=== PATIENT | female | born 1990 | race Caucasian/White ===

== ENCOUNTER → 2016-10-06 | Outpatient (REF) | payer BC ==
[~2016-10-06] MED LIST: RISP1TAB3 PO; TRAZ50TA2 PO
== END ==
LOC: M SFHCWAGY 12:06
PROVIDERS: ATTEND Nurse Practitioner Women's Health
DX: Z12.4 Encounter for screening for malignant neoplasm of cervix (principal)

== ENCOUNTER → 2017-07-05 | Outpatient (REF) | payer BC, OTHER ==
[2017-07-06 08:30] LABS: CHLAMYDIA DNA AMPLIFICATION NEGATIVE (NEGATIVE); GC DNA AMPLIFICATION NEGATIVE (NEGATIVE)
== END ==
LOC: M LAB REF 17:05
DX: R30.0 Dysuria (principal)
CPT/HCPCS: 87086

== ENCOUNTER → 2017-07-05 | Outpatient (CLI) | payer BC | LOC: M WUC 15:04 | DX: R10.32 Left lower quadrant pain (principal) | CPT/HCPCS: 74018 ==

== ENCOUNTER → 2017-09-14 | Outpatient (REF) | payer OTHER | LOC: M SFHCLERA 20:28 | DX: R35.0 Frequency of micturition (principal) ==

== ENCOUNTER → 2017-10-12 | Outpatient (REF) | payer OTHER | LOC: M SFHCLERA 18:51 | DX: R35.0 Frequency of micturition (principal) | CPT/HCPCS: 87086 ==

== ENCOUNTER → 2018-01-09 | Outpatient (REF) | payer OTHER | LOC: M LAB REF 09:23 | DX: J02.9 Acute pharyngitis, unspecified (principal) ==

== ENCOUNTER 2018-04-24 20:56 | Emergency (ER) | payer OTHER ==
[2018-04-24 21:31] LABS: BASO % 0.2 % (0.0-1.0); EOS % 0.2 % (0.0-3.0); HEMATOCRIT 37.6 % (36.0-47.0); HEMOGLOBIN 12.8 g/dl (12.0-15.5); IMMATURE GRANULOCYTE % 0.4 % (0-3.0); LYMPH # 2.1 10^3/uL (1.5-6.5); LYMPH % 18.9 % (24.0-44.0); MEAN CORPUSCULAR HEMOGLOBIN 30.8 pg (27.0-33.0); MEAN CORPUSCULAR VOLUME 90.4 fl (80.0-96.0); MONO # 0.6 10^3/uL (0.0-0.8); MONO % 5.4 % (0.0-5.0); NEUTROPHILS # 8.2 10^3/uL (1.8-7.7); NEUTROPHILS % 74.9 % (36.0-66.0); PLATELET COUNT, AUTOMATED 267 10^3/uL (150-450); RED BLOOD COUNT 4.16 10^6/uL (4.00-5.40); RED CELL DISTRIBUTION WIDTH 12.8 % (11.5-14.5); WHITE BLOOD COUNT 10.9 10^3/uL (4.0-10.0)
[2018-04-24 21:43] LABS: AMPHETAMINES LEVEL URINE NEGATIVE (NEGATIVE); BARBITURATES URINE NEGATIVE (NEGATIVE); BENZODIAZEPINES URINE NEGATIVE (NEGATIVE); CANNABINOIDS URINE NEGATIVE (NEGATIVE); COCAINE METABOLITE URINE NEGATIVE (NEGATIVE); METHADONE URINE NEGATIVE (NEGATIVE); OPIATES URINE NEGATIVE (NEGATIVE); PHENCYCLIDINE URINE NEGATIVE (NEGATIVE)
[2018-04-24] MEDS: CHARCOAL ACTIVATED LIQUID 25 GM/120 ML BTL PO (21:45)
[2018-04-24 21:46] LABS: OSMOLALITY SERUM 284 MOSM/KG (275-295)
[2018-04-24 21:57] LABS: CONTROL LINE HCG INT CTR LINE PRESENT; HCG, SERUM QUALITATIVE NEGATIVE (NEGATIVE)
[2018-04-24 22:00] LABS: ACETAMINOPHEN LEVEL 11.1 UG/ML (10.0-30.0); ALBUMIN 3.8 GM/DL (3.2-5.2); ALBUMIN/GLOBULIN RATIO 1.31 (1.00-1.93); ALKALINE PHOSPHATASE 52 U/L (45-117); ALT/SGPT 23 U/L (12-78); ANION GAP 7 MEQ/L (8-16); AST/SGOT 17 U/L (7-37); BILIRUBIN,DIRECT 0.1 MG/DL (0.0-0.2); BILIRUBIN,TOTAL 0.3 MG/DL (0.2-1.0); BLOOD UREA NITROGEN 11 MG/DL (7-18); CALCIUM LEVEL 8.6 MG/DL (8.5-10.1); CARBON DIOXIDE LEVEL 26 MEQ/L (21-32); CHLORIDE LEVEL 107 MEQ/L (98-107); CPK CREATINE PHOSPHOKINASE 133 U/L (26-192); CREATININE FOR GFR 0.76 MG/DL (0.55-1.30); ETHYL ALCOHOL (ETHANOL) < 0.003 % (0.000-0.010); GLOMERULAR FILTRATION RATE > 60.0 (>60); GLUCOSE, FASTING 101 MG/DL (70-100); POTASSIUM SERUM 3.5 MEQ/L (3.5-5.1); SALICYLATE LEVEL < 1.7 MG/DL (5.0-30.0); SODIUM LEVEL 140 MEQ/L (136-145); TOTAL PROTEIN 6.7 GM/DL (6.4-8.2)
[2018-04-24] MEDS: ONDANSETRON 4MG/2ML VIAL (J2405) IV (22:25)
[2018-04-25 01:06] LABS: ACETAMINOPHEN LEVEL 54.7 UG/ML (10.0-30.0)
[2018-04-25 02:17] LABS: ACETAMINOPHEN LEVEL 44.1 UG/ML (10.0-30.0)
== END 2018-04-25 04:47 ==
LOC: M ED 20:56
DX: T39.1X2A Poisoning by 4-Aminophenol derivatives, intentional self-harm, initial encounter (principal); X58.XXXA Exposure to other specified factors, initial encounter; Y92.89 Other specified places as the place of occurrence of the external cause; F32.9 Major depressive disorder, single episode, unspecified; Z79.899 Other long term (current) drug therapy
CPT/HCPCS: J2405

== ENCOUNTER → 2018-06-01 | Outpatient (REF) | payer OTHER ==
[2018-06-01 21:37] LABS: APPEARANCE, URINE CLEAR (CLEAR); BACTERIA, URINE AUTO NEGATIVE (NEGATIVE); BILIRUBIN, URINE AUTO NEGATIVE (NEGATIVE); BLOOD, URINE BLOOD NEGATIVE (NEGATIVE); COLOR, URINE YELLOW (YELLOW); GLUCOSE, URINE (UA) AUTO NEGATIVE (NEGATIVE); KETONE, URINE AUTO NEGATIVE (NEGATIVE); LEUKOCYTE ESTERASE, URINE AUTO NEGATIVE (NEGATIVE); MUCUS, URINE SMALL (NEGATIVE); NITRITE, URINE AUTO NEGATIVE (NEGATIVE); PROTEIN, URINE AUTO NEGATIVE (NEGATIVE); RBC, URINE AUTO 0 /HPF (0-3); SQUAMOUS EPITHELIAL CELL UR AU 0 /HPF (0-6); UROBILINOGEN, URINE AUTO 0.2 mg/dL (0.0-2.0); WBC, URINE AUTO 0 /HPF (0-3)
== END ==
LOC: M LAB REF 10:39
PROVIDERS: ATTEND Physician Assistant
DX: N39.0 Urinary tract infection, site not specified (principal)

== ENCOUNTER → 2018-08-14 | Outpatient (CLI) | payer OTHER ==
--- NOTE | 2018-08-14 15:10 | REP ---
Chest x-ray: Two views. History: Persistent cough . Comparison study: April 24, 2018 . Findings: The lungs are well inflated and free of infiltrate. The pleural angles are sharp. The heart size is normal. Pulmonary vasculature is not increased. No significant bony abnormality is seen. Impression: Negative chest x-ray. Electronically Signed by López Diego MD 08/14/2018 03:02 P
== END ==
LOC: M LRY 14:05
PROVIDERS: ATTEND Nurse Practitioner Family
DX: R05 Cough (principal)

== ENCOUNTER → 2018-08-15 | Outpatient (REF) | payer OTHER ==
[2018-08-15 20:10] LABS: INFLUENZA A AMPLIFICATION POSITIVE (NEGATIVE); INFLUENZA B AMPLIFICATION NEGATIVE (NEGATIVE)
== END ==
LOC: M LAB REF 15:54
PROVIDERS: ATTEND Nurse Practitioner Adult Health
DX: R50.9 Fever, unspecified (principal)

== ENCOUNTER 2018-11-15 21:13 | Emergency (ER) | payer OTHER ==
[~2018-11-15] VITALS: Ht 162.6 cm; Wt 56.8 kg
[2018-11-15] MEDS ORDERED: BUSP5TA PO ×2 (21:23→23:25)
[2018-11-15] MEDS ORDERED: [UNRECOGNIZED DRUG - CODE] PO (22:07)
[2018-11-15] MEDS ORDERED: HYDR-3363 PO (22:07)
[2018-11-15] MEDS ORDERED: SPIR-10 PO (22:09)
[2018-11-15 22:40] LABS: HEMATOCRIT 42.5 % (36.0-47.0); HEMOGLOBIN 14.5 g/dl (12.0-15.5); MEAN CORPUSCULAR HEMOGLOBIN 31.3 pg (27.0-33.0); MEAN CORPUSCULAR HGB CONC 34.1 g/dl (32.0-36.5); MEAN CORPUSCULAR VOLUME 91.8 fl (80.0-96.0); PLATELET COUNT, AUTOMATED 260 10^3/uL (150-450); RED BLOOD COUNT 4.63 10^6/uL (4.00-5.40); WHITE BLOOD COUNT 9.5 10^3/uL (4.0-10.0)
[2018-11-15 22:56] LABS: HCG, SERUM QUALITATIVE NEGATIVE (NEGATIVE)
[2018-11-15 22:59] LABS: AMPHETAMINES LEVEL URINE NEGATIVE (NEGATIVE); BARBITURATES URINE NEGATIVE (NEGATIVE); BENZODIAZEPINES URINE NEGATIVE (NEGATIVE); CANNABINOIDS URINE NEGATIVE (NEGATIVE); COCAINE METABOLITE URINE NEGATIVE (NEGATIVE); METHADONE URINE NEGATIVE (NEGATIVE); OPIATES URINE NEGATIVE (NEGATIVE); PHENCYCLIDINE URINE NEGATIVE (NEGATIVE)
[2018-11-15 23:19] LABS: ACETAMINOPHEN LEVEL < 2.0 UG/ML (10.0-30.0); ALBUMIN 4.6 GM/DL (3.2-5.2); ALT/SGPT 20 U/L (12-78); BILIRUBIN,DIRECT 0.2 MG/DL (0.0-0.2); BILIRUBIN,TOTAL 0.6 MG/DL (0.2-1.0); BLOOD UREA NITROGEN 12 MG/DL (7-18); CARBON DIOXIDE LEVEL 27 MEQ/L (21-32); CHLORIDE LEVEL 102 MEQ/L (98-107); CREATININE FOR GFR 0.84 MG/DL (0.55-1.30); ETHYL ALCOHOL (ETHANOL) < 0.003 % (0.000-0.010); GLOMERULAR FILTRATION RATE > 60.0 (>60); GLUCOSE, FASTING 97 MG/DL (70-100); POTASSIUM SERUM 3.4 MEQ/L (3.5-5.1); SALICYLATE LEVEL 2.5 MG/DL (5.0-30.0); SODIUM LEVEL 139 MEQ/L (136-145); TOTAL PROTEIN 7.8 GM/DL (6.4-8.2)
[2018-11-15] MEDS ORDERED: POTASSIUM CHLORIDE 10 MEQ SR TABLET PO ONE (23:45)
[2018-11-15 23:58] VITALS: BP 129/73
== END 2018-11-16 00:09 | disposition home or self-care (01) ==
LOC: M ED 21:13
DX: F32.9 Major depressive disorder, single episode, unspecified (principal); A63.0 Anogenital (venereal) warts; K80.20 Calculus of gallbladder without cholecystitis without obstruction; N76.0 Acute vaginitis; F23 Brief psychotic disorder; F12.10 Cannabis abuse, uncomplicated; Z79.899 Other long term (current) drug therapy
CPT/HCPCS: 80048; 80076; 80307; 84443; 84703; 85027; 99284; G0480

== ENCOUNTER 2019-03-01 23:14 | Inpatient (IN) | payer OTHER ==
[~2019-03-01] VITALS: Ht 162.6 cm; Wt 55.7 kg
[~2019-03-01 23:14] MED LIST changes: +BUSP5TA PO; +HYDR-3363 PO; +SPIR-10 PO; +[UNRECOGNIZED DRUG - CODE] PO
[2019-03-02 00:17] LABS: HEMATOCRIT 39.9 % (36.0-47.0); HEMOGLOBIN 13.9 g/dl (12.0-15.5); MEAN CORPUSCULAR HEMOGLOBIN 31.6 pg (27.0-33.0); MEAN CORPUSCULAR HGB CONC 34.8 g/dl (32.0-36.5); MEAN CORPUSCULAR VOLUME 90.7 fl (80.0-96.0); PLATELET COUNT, AUTOMATED 232 10^3/uL (150-450); WHITE BLOOD COUNT 10.1 10^3/uL (4.0-10.0)
[2019-03-02 00:37] LABS: AMPHETAMINES LEVEL URINE NEGATIVE (NEGATIVE); BARBITURATES URINE NEGATIVE (NEGATIVE); BENZODIAZEPINES URINE NEGATIVE (NEGATIVE); CANNABINOIDS URINE NEGATIVE (NEGATIVE); COCAINE METABOLITE URINE NEGATIVE (NEGATIVE); METHADONE URINE NEGATIVE (NEGATIVE); OPIATES URINE NEGATIVE (NEGATIVE); PHENCYCLIDINE URINE NEGATIVE (NEGATIVE)
[2019-03-02 00:51] LABS: ACETAMINOPHEN LEVEL < 2.0 UG/ML (10.0-30.0); ALBUMIN 4.1 GM/DL (3.2-5.2); ALT/SGPT 18 U/L (12-78); BILIRUBIN,DIRECT 0.1 MG/DL (0.0-0.2); BILIRUBIN,TOTAL 0.3 MG/DL (0.2-1.0); BLOOD UREA NITROGEN 12 MG/DL (7-18); CALCIUM LEVEL 9.4 MG/DL (8.5-10.1); CARBON DIOXIDE LEVEL 25 MEQ/L (21-32); CHLORIDE LEVEL 106 MEQ/L (98-107); CREATININE FOR GFR 0.81 MG/DL (0.55-1.30); ETHYL ALCOHOL (ETHANOL) < 0.003 % (0.000-0.010); GLOMERULAR FILTRATION RATE > 60.0 (>60); GLUCOSE, FASTING 97 MG/DL (70-100); POTASSIUM SERUM 3.8 MEQ/L (3.5-5.1); SALICYLATE LEVEL < 1.7 MG/DL (5.0-30.0); SODIUM LEVEL 138 MEQ/L (136-145); TOTAL PROTEIN 7.1 GM/DL (6.4-8.2)
[2019-03-02] MEDS ORDERED: SPIR50TA4 PO (01:13)
[2019-03-02] MEDS ORDERED: BUPR150T3 PO (01:14)
[2019-03-02] MEDS ORDERED: MAALOX 30 ML SUSP *UDC PO PRN (01:45)
[2019-03-02] MEDS ORDERED: MOM 30ML SUSPENSION UDC PO PRN (01:45)
[2019-03-02] MEDS ORDERED: traZODone 50 MG TAB PO PRN (01:45)
[2019-03-02] MEDS ORDERED: OLANZapine ORAL DISINTEGRATING TAB 5MG PO PRN (01:45)
[2019-03-02] MEDS ORDERED: NICOTINE 21MG/24HR 1 EA TRANSDERMAL TD PRN (01:45)
[2019-03-02] MEDS ORDERED: ACETAMINOPHEN TAB 650MG DOSE (2X325MG) PO PRN (01:45)
[2019-03-02] MEDS ORDERED: C-251TAB PO (02:03)
[2019-03-02] MEDS ORDERED: HAIR1CHW PO (02:03)
[2019-03-02 02:17] VITALS: BP 133/78
[2019-03-02 06:34] VITALS: BP 100/51
[2019-03-02] MEDS: buPROPion **XL** TABLET 150MG (WELLBUTRIN XL) PO SCH (08:44)
--- NOTE | 2019-03-02 12:02 | HPEPDOC ---
[facility] Medical History & Physical Date of Admission Mar 02, 2019 Date of Service: Mar 02, 2019 History and Physical CONSULT FOR: Psychiatry medical history and physical HISTORY OF PRESENT ILLNESS: This is a 28-year-old female who is a history of previous hospitalizations for depression and suicidal ideation who had reported an interest in overdosing in taking her home life she was brought in the emergency room by [place] [employer] she is seen and examined with a ladies' locker room attendant at the inpatient mental health unit at this time. Physically she tells me she is doing well she is on medication for her acne as well as perioral dermatitis recently but otherwise patient denies weight loss, hair loss, headache, visual changes, chest pain, shortness of breath, cough, nausea, vomiting, diarrhea, abdominal pain, muscle aches, worsening arthritis, change in mood PAST MEDICAL HISTORY: 1. Genital warts. 2. Gallstones. 3. Gonorrhea in 2014 4. Herpangina 5. Perioral dermatitis 6. Acne. HOME MEDICATIONS: Please see below. ALLERGIES: Please see below PAST SURGICAL HISTORY: 1. Right knee surgery. SOCIAL HISTORY: Lives with: Mother, Employment: Childcare center on [place], Tobacco use: 3 cigarettes per day she is decreased her intake significantly. ETOH: Rarely wondering last month, Illicit drug use: Denies, CODE STATUS: Full code FAMILY HISTORY:Reviewed and noncontributory REVIEW OF SYSTEMS: 10 systems reviewed and negative other than HPI PHYSICAL EXAMINATION: VITAL SIGNS: Please see below GENERAL: Pleasant anxious slim female sitting up in bed awake alert oriented speaking in complete sentences no acute distress HEENT: Moist mucous membranes no elevation in CVP CARDIOVASCULAR: S1 S2 regular no additional heart sounds appreciated. RESPIRATORY: Clear to auscultation bilaterally. ABDOMINAL: Bowel sounds present abdomen soft and nontender EXTREMITIES: No clubbing cyanosis or edema NEUROLOGICAL: Spontaneously moves all 4 extremities cranial 2 through 12 grossly intact no gross focal deficits appreciated PSYCHOLOGICAL: Somewhat pressured speech appears though she's been crying LABORATORY DATA: See below. MICROBIOLOGY: Please see below. IMAGING: None ASSESSMENT & PLAN: This is a 28-year-old female with suicidal ideation. PROBLEMS: 1.suicidal ideation: Measured as per inpatient mental health unit psychiatric team. 2. Acne: She follows with dermatology on the outpatient setting will restart her home spironolactone with holding parameter for low blood pressure. She recently completed a course of antibiotics for her perioral dermatitis continue outpatient follow-up 3. Genital warts: Continue outpatient follow-up 4. Abnormal TSH: Consider rechecking through primary care provider after her acute hospitalization is resolved DVT PROPHYLAXIS: Ambulating Thank you for this interesting consult, we will continue to follow along with you. Please Vocera secure text or call with any specific questions. Vital Signs Vital Signs Date Time Temp Pulse Resp B/P (MAP) Pulse Ox O2 Delivery O2 Flow Rate FiO2 03/02/19 06:34 97.1 77 14 100/51 (67) 03/02/19 02:43 99 Room Air Laboratory Data Labs 24H Laboratory Tests 2 03/02/19 00:02: Nucleated Red Blood Cells % (auto) 0.0, Anion Gap 7L, Glomerular Filtration Rate > 60.0, Calcium Level 9.4, Aspartate Amino Transf (AST/SGOT) 15, Alanine Aminotransferase (ALT/SGPT) 18, Alkaline Phosphatase 54, Total Bilirubin 0.3, Direct Bilirubin 0.1, Total Protein 7.1, Albumin 4.1, Albumin/Globulin Ratio 1.37, Thyroid Stimulating Hormone (TSH) 5.970H, Salicylates Level < 1.7L, Urine Amphetamines Screen NEGATIVE, Urine Benzodiazepines Screen NEGATIVE, Urine Opiates Screen NEGATIVE, Urine Methadone Screen NEGATIVE, Acetaminophen Level < 2.0L, Urine Barbiturates Screen NEGATIVE, Urine Phencyclidine Screen NEGATIVE, Urine Cocaine Metabolite Screen NEGATIVE, Urine Cannabinoids Screen NEGATIVE, Ethyl Alcohol Level < 0.003 CBC/BMP Laboratory Tests 03/02/19 00:02 Red Blood Count 4.40, Mean Corpuscular Volume 90.7, Mean Corpuscular Hemoglobin 31.6, Mean Corpuscular Hemoglobin Concent 34.8, Red Cell Distribution Width 12.9 Home Medications Scheduled Ascorbic Acid (Vitamin C) 250 Mg Tablet, 250 MG PO DAILY Ascorbic Acid/Vitamin E/Biotin (Hair Skin Nails-Biotin Gummies) 1 Each Tab.chew, 1 CHW PO DAILY Bupropion Hcl (Bupropion Xl) 150 Mg Tab.er.24h, 150 MG PO QHS Spironolactone (Spironolactone) 50 Mg Tablet, 50 MG PO QHS Scheduled PRN Hydroxyzine HCl (Hydroxyzine HCl) 25 Mg Tablet, 25 MG PO BID PRN for ANXIETY Allergies Coded Allergies: No Known Drug Allergies (Verified Allergy, Unknown, 11/15/18) A-FIB/CHADSVASC A-FIB History Current/History of A-Fib/PAF?: No AVIVA WILLIMA MD Mar 02, 2019 12:02
[2019-03-02 16:21] VITALS: BP 126/62
[2019-03-02] MEDS: SPIRONOLACTONE 50 MG TAB PO SCH (20:12)
[2019-03-02] MEDS ORDERED: LORazepam 1 MG TAB PO PRN (21:15)
[2019-03-03 06:46] VITALS: BP 98/52
[2019-03-03] MEDS: CEPACOL LOZENGE PO PRN ×3 (08:45→20:55)
[2019-03-03] MEDS: buPROPion 75 MG TAB PO SCH (09:08)
[2019-03-03] MEDS: buPROPion **XL** TABLET 150MG (WELLBUTRIN XL) PO SCH (09:08)
--- NOTE | 2019-03-03 10:03 | MHHPE ---
DATE OF ADMISSION: 03/02/2019 VITAL SIGNS: Blood pressure 126/62, pulse 77, temperature 98.8. CHIEF COMPLAINT: She is anxious. SUBJECTIVE: She is 28 years old, she is single, has no children, lives with her mother and brother. She was brought into the emergency room after her mother had called the police, she was concerned that the patient may kill herself. She has had two prior hospitalizations, the last one was last year, in April, when she had taken an overdose, was transferred to [facility], stayed there for about a week or so, was discharged, and since then has been seeing the outpatient clinic at [facility]. She says she saw Dr. Clifton Gilmore, and Dianna Galvan for therapy, and most recently, after Dr. Gilmore left the clinic (he works at the inpatient unit here and she is assigned to him). She started seeing Dr. Turk. She sees Dianna Galvan as well, says last saw him about a month or so ago. She has been anxious, says has essentially not been doing well since the breakup of her relationship about 3 years ago, but that more lately anxiety has been a major feature, increasingly so, she is increasingly preoccupied with she term as her "skin condition," and on further inquiry, says has many blemishes and pimples on her face, says that has been the case for a few years, has been seen by dermatology, she acknowledges dermatology did not agree that it was as blemished as she thought, in fact mother suggests that face has been okay, that she has had a hard time believing that, was preoccupied with that, and feels it interferes with other aspects of her life, her confidence, says gets upset, further anxious, when she sees other couples, who appear to be leading happy lives. Says friends of hers have gotten , and she feels disappointed and sad that she is not. She says though she feels anxious about these situation, they tend to wax and wane. There are times when she is more anxious, more frustrated, depressed, says that she talks to her mother, and then suggests her mother has been her "punching bag" emotionally. Says they generally get along. Says she told her mother she would overdose on pills, but says she had no intentions of doing so. Apparently she left house, mother was worried, called the police, and was brought here. Says has felt a bit better after Wellbutrin was started recently, unclear exactly when, at 150 mg daily, by her outpatient psychiatrist. Says has felt a little less anxious, and is hoping that it helps cut down on her smoking as well. Says feels more relaxed when she smokes, however. Sleep is at times erratic, she has noticed a diminishing in her enjoyment of previous activities, appetite is fair, concentration is a challenge at times. There is no psychomotor retardation. She does not think there is any substantial area where she is not preoccupied with her face, perceived blemishes. Denies any auditory or visual hallucinations. Says that there was a staff meeting the other day, felt the others were doing well, the adults, and contrasted that with her own situation. PAST PSYCHIATRIC HISTORY: As indicated above, has had two hospitalizations at least, last one was last year, in April, was transferred to [facility]. She was hospitalized here in 2012, did not want to talk about that, at that time was thought to have evidence of psychosis, was paranoid, with possible auditory hallucinations, delusions of persecution. Says has not felt like that since then. FAMILY PSYCHIATRIC HISTORY: Says has an aunt who has difficulties with anxiety and depression. SUBSTANCE ABUSE HISTORY: Denies any, though chart from 2013, at least the summary, suggests that she has had difficulties in the past. Toxicology was negative. MEDICAL HISTORY/PAST SURGICAL HISTORY: 1. History of genital warts. 2. Gallstones. 3. Gonorrhea in 2014. 4. Herpangina. 5. Perioral dermatitis 6. Acne. MEDICATIONS: Please seen the list, this includes: - bupropion 150 mg daily - spironolactone 50 mg at night - hydroxyzine 25 mg twice a day as needed for anxiety, says has used it only occasionally SOCIAL HISTORY: Please refer to previous summaries, she stays with her mother, brother. Has extended family in the area, is in touch with some of them, says also has close friends. MENTAL STATUS EXAMINATION: She is seen in the presence of staff. She is neat, cooperative. No agitation. No psychomotor retardation. There are no lesions seen on the face. No abnormal movements noted. She is coherent, is anxious, appears so as well. Affect is congruent, no thought disorder, denies any suicidal thoughts or intents at present. No homicidal ideas or intents. No evidence of any psychosis. Does not appear to be internally preoccupied. No delusions elicited. She is able to maintain and shift attention adequately. Cognition is grossly intact. There is no fluctuation of consciousness. Judgment is questionable, as is insight. INVESTIGATIONS: These show toxicology negative. Metabolic profile within normal limits. Complete blood count essentially within normal limits. ASSESSMENT: Other specified anxiety disorder. Other specified depressive disorder. Consider the possibility of Body dysmorphic disorder, given her preoccupation with her skin blemishes, which are perceived, and anxieties related to that are quite significant, impact her functioning. It is quite likely she is minimizing her difficulties at present. PLAN: She is admitted to the inpatient psychiatry unit, placed on relevant precautions. We will look at obtaining collateral information to help complete the clinical picture. I would suggest empirically increasing the Wellbutrin to 300 mg daily to help address her mood, and I would also suggest considering additions of psychotropics, possibly a low dose atypical antipsychotic, to help with ruminations related to the concerns about her skin. She will receive a medicine consult. She will be encouraged to get involved in individual, group and milieu therapy. She will be discharged with followup once she is stable. I would anticipate a 3-5 day stay. The assessment took 60 minutes.
[2019-03-03 16:06] VITALS: BP 105/68
--- NOTE | 2019-03-03 17:33 | MHIPN ---
DATE: 03/03/2019 CHIEF COMPLAINT: Feels anxious. SUBJECTIVE: Is seen for followup in the presence of staff. Says she feels anxious but a bit less so than yesterday. Says eventually slept and has felt rested. Says was visited by family, including mother and that went well. Says not has been as preoccupied with her skin. Says tend to do so when she looks at herself mostly. MENTAL STATUS EXAMINATION: Neat, cooperative. Somewhat less guarded. She appears coherent. Affect is reactive, appears less anxious. Denies suicidal thoughts or intents. No homicidal ideas or intents. Currently, there is no evidence of any psychosis. Cognition is grossly intact. Judgment and insight are fair, but appear somewhat compromised. ASSESSMENT: 1. Other specified anxiety disorder. 2. Other specified depressive disorder. PLAN: Continue current care. The Wellbutrin has been decreased to 225 mg daily rather than 300 mg to see if the lower dose is effective, this can be further assessed when she sees the psychiatrist tomorrow. She is also on Ativan as needed. I would suggest obtaining collateral information and she will be seeing the assigned psychiatrist and the treatment team tomorrow, further recommendations will be made. VITAL SIGNS: Blood pressure 98/52, pulse 71, temperature 97.5.
[2019-03-03] MEDS: SPIRONOLACTONE 50 MG TAB PO SCH (20:32)
[2019-03-04 06:29] VITALS: BP 104/62
[2019-03-04] MEDS: buPROPion 75 MG TAB PO SCH (08:02)
[2019-03-04] MEDS: buPROPion **XL** TABLET 150MG (WELLBUTRIN XL) PO SCH (08:02)
[2019-03-04] MEDS: CEPACOL LOZENGE PO PRN (08:02)
[2019-03-04] MEDS ORDERED: NICO21PAT TD (09:56)
[2019-03-04] MEDS ORDERED: BUPR75TA5 PO (09:56)
--- NOTE | 2019-03-04 09:59 | MHDSPDOC ---
[facility] Discharge Summary Discharge Summary DATE OF ADMISSION: Mar 02, 2019 at 01:41 DATE OF DISCHARGE: 03/04/19 Date of Service: 03/04/2019 Diagnoses Unspecified depressive disoder. Rule out adjustment versus MDD. Unspecified personality disorder. Likely Cluster B/borderline. History of Present Illness The patient a 28-year-old woman who has recently been treated by myself and is currently seeing Dr. Turk at [facility] for depression presents after reportedly telling her mother that she wished to and was brought in on a pick-up order. She was brought in and treated with her Wellbutrin that she has been on again and off again for roughly a year. She has a history of severe depression with psychosis as well a severe suicide attempt in April 2018. However, the patient did well on the unit, denying any suicidal or homicidal ideation and was titrated to 225 mg of her Wellbutrin in combination of 150 mg extended release and 75 mg of immediate release in the morning. She reportedly has significant image problems likely secondary to her borderline personality disorder. Consultants Involved Hospitalist/PCP screening Treatment and Progress On The Unit The patient was admitted to the unit and subsequently titrated on her Wellbutrin. She was initially changed to 300 mg of extended release. Reported that she felt it over-stimulating and was subsequently lowered to 150 mg of extended release in addition to 75 mg of immediate release in the morning with positive effects. She had denied any suicidal or homicidal ideation the entirety of her admission. On Monday, she requested to leave and at that time in my clinical judgment did not meet involuntary criteria for continued stay and declined voluntary admission and thus was discharged in good jordyn to the care of [facility]. She had no major behavioral problems on the unit, no evidence of major mental health impairing her when met on discharge. Discharge Assessment [id number]old woman with likely depression/borderline personality disorder presents after reported concerning statements. Brought in on a pick-up order and admitted for observation. Did well with very mild medication changes. No signs and symptoms of major mental illness impairing. Wishes to go and no longer meets involuntary criteria and thus discharged in good jordyn. Mental Status Examination General: Well dressed with good hygiene Speech: Spontaneous and fluid Thought processes: Linear and logical MSK: Smooth and coordinated gait, no signs of tremors or involuntary orofacial movements Thought content: Future orientated Abstract reasoning, and computation: Intact Description of associations: Intact Description of abnormal or psychotic thoughts: Denies any suicidal or homicidal ideation. Denies any auditory or visual hallucinations. Does not appear to be responding to internal stimuli. Does not appear to be endorsing any bizarre or paranoid ideation. Judgment: fair Insight: fair Orientation: Alert and orientated 3 Cognition: Grossly normal Recent and remote memory: Intact Attention span and concentration: Intact Fund of knowledge: Adequate Mood: "okay" Affect: Euthymic with a full range Follow Up The social work team worked during the predischarge meeting in order to evaluate for further issues of lethality address them fully before discharge. They worked on safety planning with the patient's family members in order to ensure that the patient will have a safe and effective discharge. Time Spent The amount of time spent in the coordination of care for this patient was approximately 20 minutes. Vital Signs/I&Os Vital Signs Date Time Temp Pulse Resp B/P (MAP) Pulse Ox O2 Delivery O2 Flow Rate FiO2 03/04/19 06:29 98.3 79 14 104/62 (76) 03/02/19 02:43 99 Room Air Medications Scheduled Ascorbic Acid (Vitamin C) 250 Mg Tablet, 250 MG PO DAILY, (Reported) Ascorbic Acid/Vitamin E/Biotin (Hair Skin Nails-Biotin Gummies) 1 Each Tab.chew, 1 CHW PO DAILY, (Reported) Bupropion HCl (Bupropion HCl) 75 Mg Tablet, 75 MG PO DAILY for mood for 7 Days, #7 Bupropion Hcl (Bupropion Xl) 150 Mg Tab.er.24h, 150 MG PO QHS, (Reported) Spironolactone (Spironolactone) 50 Mg Tablet, 50 MG PO QHS, (Reported) Scheduled PRN Hydroxyzine HCl (Hydroxyzine HCl) 25 Mg Tablet, 25 MG PO BID PRN for ANXIETY, (Reported) Nicotine (Nicotine Patch) 21 Mg Patch.td24, 1 PATCH TD DAILY PRN for nicotine withdrawal for 30 Days, #30 Allergies Coded Allergies: No Known Drug Allergies (Verified Allergy, Unknown, 11/15/18) DORITA HYLTON DO Mar 04, 2019 09:59
== END 2019-03-04 14:55 | disposition home or self-care (01) | DRG 881 ==
LOC: M ED 03-02 00:05 → M ED INP 03-02 01:41 → M PSY 03-02 02:26
PROVIDERS: ADMIT Psychiatry & Neurology Psychiatry; ATTEND Psychiatry & Neurology Addiction Medicine
DX: F32.9 Major depressive disorder, single episode, unspecified (principal); R45.851 Suicidal ideations; F43.20 Adjustment disorder, unspecified; F60.3 Borderline personality disorder; Z79.899 Other long term (current) drug therapy; Z91.14 Patient's other noncompliance with medication regimen; A63.0 Anogenital (venereal) warts; K80.20 Calculus of gallbladder without cholecystitis without obstruction; B08.5 Enteroviral vesicular pharyngitis; L71.0 Perioral dermatitis; L70.9 Acne, unspecified; F17.210 Nicotine dependence, cigarettes, uncomplicated; R94.6 Abnormal results of thyroid function studies

== ENCOUNTER → 2020-11-22 | Outpatient (REF) | payer OTHER, BC ==
[~2020-11-22] MED LIST changes: +BUPR150T12 PO; +BUPR75TA5 PO; +C-251TAB PO; +HAIR1CHW PO; +NICO21PAT TD; +SPIR50TA4 PO
== END ==
LOC: M WUC 19:37
PROVIDERS: ATTEND Nurse Practitioner Family
DX: R55 Syncope and collapse (principal); R42 Dizziness and giddiness

== ENCOUNTER → 2021-02-18 | Outpatient (REF) | payer BC | LOC: M WUC 09:39 | PROVIDERS: ATTEND Physician Assistant | DX: J02.9 Acute pharyngitis, unspecified (principal) ==

== ENCOUNTER → 2022-11-15 | Outpatient (REF) | payer BC | LOC: M LAB REF 17:50 | PROVIDERS: ATTEND Nurse Practitioner Family | DX: Z32.01 Encounter for pregnancy test, result positive (principal) ==

== ENCOUNTER → 2022-12-08 | Outpatient (CLI) | payer BC | LOC: M RAD 13:58 | PROVIDERS: ATTEND Registered Nurse | DX: O09.611 Supervision of young primigravida, first trimester (principal); Z36.89 Encounter for other specified antenatal screening; Z3A.01 Less than 8 weeks gestation of pregnancy ==

== ENCOUNTER → 2022-12-27 | Outpatient (CLI) | payer MEDICAID ==
[2022-12-27 15:51] LABS: HEMATOCRIT 38.8 % (36.0-47.0); HEMOGLOBIN 13.2 g/dl (12.0-15.5); MEAN CORPUSCULAR HEMOGLOBIN 31.5 pg (27.0-33.0); MEAN CORPUSCULAR VOLUME 92.6 fl (80.0-96.0); PLATELET COUNT, AUTOMATED 271 10^3/uL (150-450); RED BLOOD COUNT 4.19 10^6/uL (4.00-5.40); WHITE BLOOD COUNT 8.9 10^3/uL (4.0-10.0)
[2022-12-27 16:20] LABS: HIV 1&2 SCREEN NEGATIVE (NEGATIVE)
[2022-12-27 16:28] LABS: HEPATITIS C VIRUS ABY INDEX 0.08 INDEX (<0.8)
== END ==
LOC: M PLALAB 12:37
PROVIDERS: ATTEND Obstetrics & Gynecology
DX: Z34.91 Encounter for supervision of normal pregnancy, unspecified, first trimester (principal)

== ENCOUNTER → 2023-03-28 | Outpatient (REF) | payer BC ==
[2023-03-28 11:33] LABS: BASO % 0.1 % (0.0-1.0); EOS # 0.1 10^3/uL (0.0-0.5); EOS % 0.6 % (0.0-3.0); HEMOGLOBIN 11.8 g/dl (12.0-15.5); LYMPH # 1.5 10^3/uL (1.5-5.0); LYMPH % 15.5 % (24.0-44.0); MEAN CORPUSCULAR HEMOGLOBIN 31.6 pg (27.0-33.0); MEAN CORPUSCULAR HGB CONC 33.7 g/dl (32.0-36.5); MEAN CORPUSCULAR VOLUME 93.6 fl (80.0-96.0); MONO # 0.6 10^3/uL (0.0-0.8); MONO % 6.7 % (2.0-8.0); NEUTROPHILS # 7.1 10^3/uL (1.5-8.5); NEUTROPHILS % 76.1 % (36.0-66.0); PLATELET COUNT, AUTOMATED 296 10^3/uL (150-450); RED BLOOD COUNT 3.74 10^6/uL (4.00-5.40); WHITE BLOOD COUNT 9.3 10^3/uL (4.0-10.0)
[2023-03-28 12:00] LABS: ALBUMIN 2.9 G/DL (3.2-5.2); ALKALINE PHOSPHATASE 65 U/L (46-116); ALT/SGPT 30 U/L (7.0-40); AST/SGOT 18 U/L (<34); BILIRUBIN,TOTAL 0.3 MG/DL (0.3-1.2); BLOOD UREA NITROGEN 9 MG/DL (9-23); CALCIUM LEVEL 8.9 MG/DL (8.5-10.1); CARBON DIOXIDE LEVEL 26 MMOL/L (20-31); CHLORIDE LEVEL 101 MMOL/L (98-107); CHOLESTEROL LEVEL 241 MG/DL (<200); CREATININE FOR GFR 0.47 MG/DL (0.55-1.30); GLOMERULAR FILTRATION RATE > 60.0 (>60); GLUCOSE, FASTING 108 MG/DL (60-100); SODIUM LEVEL 134 MMOL/L (136-145); TOTAL PROTEIN 6.2 G/DL (5.7-8.2); TRIGLYCERIDES LEVEL 211 MG/DL (<150)
[2023-03-28 13:13] LABS: CHOLESTEROL RISK RATIO 2.83 (<5); LDL CHOLESTEROL 113.8 MG/DL (<100)
[2023-03-28 14:53] LABS: THYROID STIMULATING HORMONE 1.789 uIU/ML (0.55-4.78)
== END ==
LOC: M LAB REF 10:38
PROVIDERS: ATTEND Internal Medicine
DX: Z00.00 Encounter for general adult medical examination without abnormal findings (principal); F33.42 Major depressive disorder, recurrent, in full remission; Z13.220 Encounter for screening for lipoid disorders

== ENCOUNTER → 2023-04-11 | Outpatient (CLI) | payer BC, OTHER ==
[2023-04-11 16:34] LABS: HEMATOCRIT 33.6 % (36.0-47.0); HEMOGLOBIN 11.6 g/dl (12.0-15.5); MEAN CORPUSCULAR HEMOGLOBIN 31.3 pg (27.0-33.0); MEAN CORPUSCULAR HGB CONC 34.5 g/dl (32.0-36.5); MEAN CORPUSCULAR VOLUME 90.6 fl (80.0-96.0); PLATELET COUNT, AUTOMATED 334 10^3/uL (150-450); RED BLOOD COUNT 3.71 10^6/uL (4.00-5.40); WHITE BLOOD COUNT 10.9 10^3/uL (4.0-10.0)
[2023-04-11 18:13] LABS: GC DNA AMPLIFICATION NEGATIVE (NEGATIVE)
== END ==
LOC: M PLALAB 12:23
PROVIDERS: ATTEND Advanced Practice Midwife
DX: Z34.02 Encounter for supervision of normal first pregnancy, second trimester (principal)

== ENCOUNTER → 2023-05-02 | Outpatient (CLI) | payer OTHER | LOC: M PLALAB 13:42 | PROVIDERS: ATTEND Obstetrics & Gynecology | DX: Z34.03 Encounter for supervision of normal first pregnancy, third trimester (principal) | CPT/HCPCS: 36415; 86850; 86901; J2790 ==

== ENCOUNTER → 2023-06-16 | Outpatient (CLI) | payer MEDICAID, OTHER | LOC: M WHC 07:29 | PROVIDERS: ATTEND Obstetrics & Gynecology | DX: O26.843 Uterine size-date discrepancy, third trimester (principal); Z3A.35 35 weeks gestation of pregnancy ==

== ENCOUNTER → 2023-06-22 | Outpatient (REF) | payer OTHER | LOC: M SFHCWAGY 09:00 | PROVIDERS: ATTEND Specialist | DX: Z34.03 Encounter for supervision of normal first pregnancy, third trimester (principal) ==

== ENCOUNTER → 2023-07-19 | Outpatient (CLI) | payer MEDICAID, OTHER ==
[~2023-07-19] MED LIST changes: +OMEP-173 PO; +PRENTAB9 PO; +VALA1TAB5 PO
[2023-07-19 13:37] LABS: HEMATOCRIT 33.8 % (36.0-47.0); HEMOGLOBIN 10.8 g/dl (12.0-15.5); MEAN CORPUSCULAR HEMOGLOBIN 26.9 pg (27.0-33.0); MEAN CORPUSCULAR VOLUME 84.3 fl (80.0-96.0); PLATELET COUNT, AUTOMATED 335 10^3/uL (150-450); RED BLOOD COUNT 4.01 10^6/uL (4.00-5.40); WHITE BLOOD COUNT 7.7 10^3/uL (4.0-10.0)
[2023-07-19 13:57] LABS: URIC ACID 4.8 MG/DL (3.1-7.8)
[2023-07-19 13:59] LABS: LDH LACTATE DEHYDROGENASE 166 U/L (120-246)
[2023-07-19 14:00] LABS: ALT/SGPT 13 U/L (7.0-40); AST/SGOT 14 U/L (<34); BILIRUBIN,TOTAL 0.3 MG/DL (0.3-1.2); GLOMERULAR FILTRATION RATE > 60.0 (>60)
[2023-07-19 14:08] LABS: TOTAL PROTEIN,RANDOM URINE 68.2 MG/DL (0.0-14.0)
[2023-07-19 14:12] LABS: CREATININE,RANDOM URINE 155.2 MG/DL
== END ==
LOC: M PLALAB 11:01
PROVIDERS: ATTEND Specialist
DX: Z34.83 Encounter for supervision of other normal pregnancy, third trimester (principal)

== ENCOUNTER 2023-10-14 14:55 | Emergency (ER) | payer MEDICAID, OTHER ==
[~2023-10-14] VITALS: Ht 162.6 cm; Wt 84.2 kg
[~2023-10-14 14:55] MED LIST changes: +COLA100C5 PO; +IBUP80TA PO; +OXYC1TAB23 PO
[2023-10-14 15:06] VITALS: TEMP 98
[2023-10-14] MEDS ORDERED: VITA100T59 PO (15:11)
[2023-10-14 15:40] LABS: BASO % 0.2 % (0.0-1.0); EOS # 0.1 10^3/uL (0.0-0.5); EOS % 0.9 % (0.0-3.0); HEMATOCRIT 39.3 % (36.0-47.0); HEMOGLOBIN 12.9 g/dl (12.0-15.5); LYMPH # 2.2 10^3/uL (1.5-5.0); LYMPH % 34.3 % (24.0-44.0); MEAN CORPUSCULAR HEMOGLOBIN 26.4 pg (27.0-33.0); MEAN CORPUSCULAR HGB CONC 32.8 g/dl (32.0-36.5); MEAN CORPUSCULAR VOLUME 80.4 fl (80.0-96.0); MONO # 0.5 10^3/uL (0.0-0.8); MONO % 7.2 % (2.0-8.0); NEUTROPHILS # 3.6 10^3/uL (1.5-8.5); NEUTROPHILS % 57.1 % (36.0-66.0); PLATELET COUNT, AUTOMATED 373 10^3/uL (150-450); RED BLOOD COUNT 4.89 10^6/uL (4.00-5.40); WHITE BLOOD COUNT 6.4 10^3/uL (4.0-10.0)
[2023-10-14 16:01] LABS: LIPASE 42 U/L (12-53)
[2023-10-14 16:02] LABS: HCG, SERUM QUALITATIVE NEGATIVE (NEGATIVE)
[2023-10-14 16:03] LABS: ALBUMIN 4.1 G/DL (3.2-5.2); ALKALINE PHOSPHATASE 109 U/L (46-116); ALT/SGPT 55 U/L (7.0-40); AST/SGOT 25 U/L (<34); BILIRUBIN,DIRECT 0.1 MG/DL (<0.4); BILIRUBIN,TOTAL 0.4 MG/DL (0.3-1.2); BLOOD UREA NITROGEN 13 MG/DL (9-23); CARBON DIOXIDE LEVEL 24 MMOL/L (20-31); CHLORIDE LEVEL 104 MMOL/L (98-107); CK-MB VALUE MASS < 1.0 NG/ML (<3.6); CREATININE FOR GFR 0.77 MG/DL (0.55-1.30); GLOMERULAR FILTRATION RATE > 60.0 (>60); GLUCOSE, FASTING 94 MG/DL (60-100); POTASSIUM SERUM 4.2 MMOL/L (3.5-5.1); SODIUM LEVEL 138 MMOL/L (136-145); TOTAL PROTEIN 7.2 G/DL (5.7-8.2)
[2023-10-14 16:05] LABS: FREE T4 1.36 NG/DL (0.89-1.76); THYROID STIMULATING HORMONE 1.094 uIU/ML (0.55-4.78)
[2023-10-14 16:07] LABS: CPK CREATINE PHOSPHOKINASE 113 U/L (34-145); MB/CK RELATIVE INDEX 0.88 (< OR =4)
[2023-10-14 17:15] VITALS: BP 119/77; O2SAT 99
== END 2023-10-14 17:37 | disposition home or self-care (01) ==
LOC: M ED 14:55
DX: R07.9 Chest pain, unspecified (principal); F41.9 Anxiety disorder, unspecified; F32.A Depression, unspecified

== ENCOUNTER 2024-07-21 14:24 | Emergency (ER) | payer OTHER ==
[~2024-07-21] VITALS: Ht 162.6 cm; Wt 84.0 kg
[~2024-07-21 14:24] MED LIST changes: +VITA100T59 PO
[2024-07-21 14:33] VITALS: TEMP 98
[2024-07-21] MEDS ORDERED: VALA-3 (14:36)
[2024-07-21 15:30] LABS: BASO % 0.2 % (0.0-1.0); EOS # 0.1 10^3/uL (0.0-0.5); EOS % 0.6 % (0.0-3.0); HEMATOCRIT 39.9 % (36.0-47.0); HEMOGLOBIN 13.6 g/dl (12.0-15.5); LYMPH % 22.8 % (24.0-44.0); MEAN CORPUSCULAR HEMOGLOBIN 29.4 pg (27.0-33.0); MEAN CORPUSCULAR HGB CONC 34.1 g/dl (32.0-36.5); MEAN CORPUSCULAR VOLUME 86.4 fl (80.0-96.0); MONO # 0.7 10^3/uL (0.0-0.8); MONO % 8.2 % (2.0-8.0); NEUTROPHILS # 5.9 10^3/uL (1.5-8.5); PLATELET COUNT, AUTOMATED 316 10^3/uL (150-450); RED BLOOD COUNT 4.62 10^6/uL (4.00-5.40); WHITE BLOOD COUNT 8.7 10^3/uL (4.0-10.0)
[2024-07-21 15:58] LABS: CK-MB VALUE MASS 1.1 NG/ML (<3.6)
[2024-07-21 16:00] LABS: BLOOD UREA NITROGEN 16 MG/DL (9-23); CALCIUM LEVEL 9.4 MG/DL (8.5-10.1); CARBON DIOXIDE LEVEL 24 MMOL/L (20-31); CHLORIDE LEVEL 108 MMOL/L (98-107); CPK CREATINE PHOSPHOKINASE 106 U/L (34-145); CREATININE FOR GFR 0.68 MG/DL (0.55-1.30); GLOMERULAR FILTRATION RATE > 60.0 (>60); GLUCOSE, FASTING 92 MG/DL (60-100); MB/CK RELATIVE INDEX 1.03 (< OR =4); POTASSIUM SERUM 4.1 MMOL/L (3.5-5.1); SODIUM LEVEL 141 MMOL/L (136-145)
[2024-07-21 16:16] VITALS: BP 124/81
[2024-07-21 16:24] VITALS: O2SAT 96
[2024-07-21 17:01] LABS: CK-MB VALUE MASS 1.4 NG/ML (<3.6)
[2024-07-21 17:03] LABS: CPK CREATINE PHOSPHOKINASE 110 U/L (34-145); MB/CK RELATIVE INDEX 1.27 (< OR =4)
== END 2024-07-21 17:35 | disposition home or self-care (01) ==
LOC: M ED 14:24
DX: R07.89 Other chest pain (principal); J45.909 Unspecified asthma, uncomplicated; F17.200 Nicotine dependence, unspecified, uncomplicated; F17.290 Nicotine dependence, other tobacco product, uncomplicated; Z79.899 Other long term (current) drug therapy

== ENCOUNTER 2024-10-19 15:00 | Emergency (ER) | payer OTHER ==
[~2024-10-19] VITALS: Ht 162.6 cm; Wt 83.1 kg
[~2024-10-19 15:00] MED LIST changes: +VALA-3
[2024-10-19 18:00] VITALS: BP 126/77; TEMP 98.2; O2SAT 98
[2024-10-20] MEDS ORDERED: AMOX875T2 (15:08)
[2024-10-20] MEDS ORDERED: HYDR-643 (15:08)
[2024-10-20] MEDS ORDERED: LIDVISCBTL (15:08)
== END 2024-10-19 18:04 | disposition home or self-care (01) ==
LOC: M ED 15:00
DX: K12.0 Recurrent oral aphthae (principal); F32.A Depression, unspecified; F41.9 Anxiety disorder, unspecified; J45.990 Exercise induced bronchospasm; Z79.899 Other long term (current) drug therapy

== ENCOUNTER 2024-10-20 14:53 | Emergency (ER) | payer OTHER ==
[~2024-10-20] VITALS: Ht 162.6 cm; Wt 82.4 kg
[2024-10-20] MEDS ORDERED: LIDVISCBTL (15:08)
[2024-10-20] MEDS ORDERED: AMOX875T2 (15:08)
[2024-10-20] MEDS ORDERED: HYDR-643 (15:08)
[2024-10-20 17:15] LABS: BASO % 0.1 % (0.0-1.0); HEMATOCRIT 42.3 % (36.0-47.0); HEMOGLOBIN 14.3 g/dl (12.0-15.5); LYMPH # 1.9 10^3/uL (1.5-5.0); LYMPH % 26.6 % (24.0-44.0); MEAN CORPUSCULAR HEMOGLOBIN 29.9 pg (27.0-33.0); MEAN CORPUSCULAR HGB CONC 33.8 g/dl (32.0-36.5); MEAN CORPUSCULAR VOLUME 88.5 fl (80.0-96.0); MONO # 0.5 10^3/uL (0.0-0.8); MONO % 6.5 % (2.0-8.0); NEUTROPHILS # 4.8 10^3/uL (1.5-8.5); NEUTROPHILS % 66.7 % (36.0-66.0); PLATELET COUNT, AUTOMATED 287 10^3/uL (150-450); RED BLOOD COUNT 4.78 10^6/uL (4.00-5.40); WHITE BLOOD COUNT 7.2 10^3/uL (4.0-10.0)
[2024-10-20 19:15] VITALS: BP 125/88; TEMP 98.2; O2SAT 100
== END 2024-10-20 19:20 | disposition home or self-care (01) ==
LOC: M ED 14:53
DX: Z71.1 Person with feared health complaint in whom no diagnosis is made (principal); F41.9 Anxiety disorder, unspecified; F17.290 Nicotine dependence, other tobacco product, uncomplicated; Z79.899 Other long term (current) drug therapy

== ENCOUNTER → 2024-10-22 | Outpatient (REF) | payer OTHER ==
[~2024-10-22] MED LIST changes: +AMOX875T2; +HYDR-643; +LIDVISCBTL
[2024-10-22 17:11] LABS: MONO SCRN NEGATIVE (NEGATIVE)
[2024-10-25 14:06] LABS: EBV VIRAL CAPSID AG IGG > 750.00 U/mL (<18.00); EBV VIRAL CAPSID AG IGM < 36.00 U/mL (<36.00)
== END ==
LOC: M LAB REF 16:32
PROVIDERS: ATTEND Internal Medicine
DX: K13.70 Unspecified lesions of oral mucosa (principal); J02.9 Acute pharyngitis, unspecified

== ENCOUNTER 2024-12-26 17:02 | Emergency (ER) | payer OTHER ==
[~2024-12-26] VITALS: Ht 162.6 cm; Wt 86.5 kg
[2024-12-26 18:15] LABS: BASO # 0.0 10^3/uL (0.0-0.2); BASO % 0.2 % (0.0-1.0); EOS # 0.1 10^3/uL (0.0-0.5); EOS % 0.5 % (0.0-3.0); LYMPH # 1.9 10^3/uL (1.5-5.0); LYMPH % 21.1 % (24.0-44.0); MONO # 0.6 10^3/uL (0.0-0.8); MONO % 6.2 % (2.0-8.0); NEUTROPHILS # 6.6 10^3/uL (1.5-8.5); NEUTROPHILS % 71.8 % (36.0-66.0); PLATELET COUNT, AUTOMATED 305 10^3/uL (150-450)
[2024-12-26 18:30] LABS: INR 0.91
[2024-12-26 18:32] LABS: KETONE, URINE AUTO RFX NEGATIVE (NEGATIVE); LEUKOCYTE ESTERASE UR AUTO RFX NEGATIVE (NEGATIVE); MUCUS, URINE RFX SMALL (NEGATIVE); NITRITE, URINE AUTO RFX NEGATIVE (NEGATIVE); RBC, URINE AUTO RFX 0 /HPF (0-3); SQUAM EPITHELIAL CELL UR AURFX 1 /HPF (0-6); WBC, URINE AUTO RFX 0 /HPF (0-3)
[2024-12-26 18:35] LABS: HCG, SERUM QUALITATIVE NEGATIVE (NEGATIVE)
[2024-12-26 18:45] LABS: ALT/SGPT 25 U/L (7.0-40); AST/SGOT 16 U/L (<34); CALCIUM LEVEL 9.6 MG/DL (8.5-10.1); CARBON DIOXIDE LEVEL 25 MMOL/L (20-31); CHLORIDE LEVEL 103 MMOL/L (98-107); CREATININE FOR GFR 0.81 MG/DL (0.55-1.30); GLOMERULAR FILTRATION RATE > 90.0 (>60); POTASSIUM SERUM 3.9 MMOL/L (3.5-5.1); SODIUM LEVEL 142 MMOL/L (136-145)
[2024-12-26 23:44] VITALS: TEMP 97.8
[2024-12-27 02:07] VITALS: BP 140/88; O2SAT 98
== END 2024-12-27 02:08 | disposition home or self-care (01) ==
LOC: M ED 17:02
DX: K59.00 Constipation, unspecified (principal); K80.20 Calculus of gallbladder without cholecystitis without obstruction

== ENCOUNTER → 2024-12-30 | Outpatient (REF) | payer OTHER ==
[2024-12-30 14:29] LABS: APPEARANCE, URINE CLEAR (CLEAR); BACTERIA, URINE AUTO NEGATIVE (NEGATIVE); BILIRUBIN, URINE AUTO NEGATIVE (NEGATIVE); BLOOD, URINE BLOOD NEGATIVE (NEGATIVE); GLUCOSE, URINE (UA) AUTO NEGATIVE (NEGATIVE); KETONE, URINE AUTO NEGATIVE (NEGATIVE); LEUKOCYTE ESTERASE, URINE AUTO NEGATIVE (NEGATIVE); NITRITE, URINE AUTO NEGATIVE (NEGATIVE); PROTEIN, URINE AUTO NEGATIVE (NEGATIVE); RBC, URINE AUTO 0 /HPF (0-3); SPECIFIC GRAVITY URINE AUTO 1.002 (1.002-1.035); SQUAMOUS EPITHELIAL CELL UR AU 0 /HPF (0-6); UROBILINOGEN, URINE AUTO 0.2 mg/dL (0.0-2.0); WBC, URINE AUTO 1 /HPF (0-3)
== END ==
LOC: M LAB REF 14:09
PROVIDERS: ATTEND Internal Medicine
DX: R31.9 Hematuria, unspecified (principal)

== ENCOUNTER → 2025-02-27 | Outpatient (REF) | payer OTHER | LOC: M LAB REF 17:11 | PROVIDERS: ATTEND Nurse Practitioner Family | DX: J06.9 Acute upper respiratory infection, unspecified (principal); Z20.828 Contact with and (suspected) exposure to other viral communicable diseases ==